=== PATIENT | male | born 1990 | race American Indian/Alaskan Native ===

== ENCOUNTER 2020-09-28 02:07 | Emergency (ER) | payer SELFPAY ==
[2020-09-28 03:19] LABS: Basophils # (Auto) 0.1 K/mm3 (0.0-0.1); Basophils % (Auto) 1.1 % (0.0-1.8); Eosinophils # (Auto) 0.2 K/mm3 (0.0-0.4); Eosinophils % (Auto) 2.5 % (0.0-4.3); Hematocrit 41.6 % (35.5-45.6); Hemoglobin 14.6 gm/dl (11.8-15.2); Lymphocytes % (Auto) 32.2 % (13.4-35.0); Mean Corpuscular HGB Conc 35 % (32-34); Mean Corpuscular Volume 94 fl (84-94); Monocytes # (Auto) 0.6 K/mm3 (0.0-0.8); Monocytes % (Auto) 9.8 % (0.0-7.3); Platelet Count 224 K/mm3 (140-440); Red Blood Count 4.43 M/mm3 (3.65-5.03); Red Cell Distribution Width 13.4 % (13.2-15.2)
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
[2020-09-28 03:37] LABS: BUN/Creatinine Ratio 12; Blood Urea Nitrogen 11 mg/dL (9-20); Hemolysis Index 7
[2020-09-28 08:58] LABS: Bilirubin,Urine NEG (Negative); Blood,Urine NEG (Negative); Color,Urine Straw (Yellow); Protein,Urine <15 mg/dL mg/dL (Negative); Urobilinogen,Urine < 2.0 mg/dL (<2.0); WBC,Urine < 1.0 /HPF (0.0-6.0)
[2020-09-28 09:40] LABS: Amphetamine Screen,Urine Negative; Benzodiazepines Screen,Urine Negative; Cannabinoid Screen,Urine Negative; Cocaine Screen,Urine Negative; Methadone Screen,Urine Negative; Opiate Screen,Urine Negative
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
[2020-09-28] MEDS: risperiDONE 0.25 MG TAB PO SCH ×2 (14:00→21:43)
[2020-09-28] MEDS: hydrOXYzine PAMOATE 25 MG CAP PO SCH ×2 (14:00→21:42)
[2020-09-28] MEDS: traZODone 50 MG TAB PO SCH (21:44)
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
[2020-09-29] MEDS ORDERED: risperiDONE 0.25 MG TAB ONE (10:24)
[2020-09-29] MEDS: risperiDONE 0.25 MG TAB PO SCH (11:25)
[2020-09-29] MEDS: hydrOXYzine PAMOATE 25 MG CAP PO SCH ×2 (11:25→22:43)
[2020-09-29] MEDS: DIVALPROEX DR 125 MG TAB PO SCH ×2 (12:02→22:43)
[2020-09-29] MEDS: risperiDONE 1 MG TAB PO SCH (22:43)
[2020-09-29] MEDS: traZODone 50 MG TAB PO SCH (22:43)
[2020-09-30 05:41] VITALS: BP 111/76
[2020-09-30] MEDS: risperiDONE 1 MG TAB PO SCH (09:57)
[2020-09-30] MEDS: hydrOXYzine PAMOATE 25 MG CAP PO SCH (09:57)
[2020-09-30] MEDS: DIVALPROEX DR 125 MG TAB PO SCH (09:57)
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
[2020-09-30] MEDS ORDERED: DIVALPROEX DR 250 MG TAB PO SCH (22:00)
== END 2020-09-30 15:21 ==
LOC: EEVIPCON 02:07 → ED 02:07
DX: F20.9 Schizophrenia, unspecified (principal); Z20.822 Contact with and (suspected) exposure to COVID-19
CPT/HCPCS: 36415; 80048; 80307; 81001; 85025; 99285; Q0177; U0003; 80320; G0480